=== PATIENT | male | born 1955 | race American Indian/Alaskan Native ===

== ENCOUNTER 2017-07-22 13:34 | Outpatient (CLI) | payer BC ==
--- NOTE | 2017-07-23 03:52 | Magnetic Resonance Report ---
FINAL REPORT EXAM: MR LUMBAR SPINE WO CON HISTORY: BACK PAIN TECHNIQUE: Routine multiplanar fast spin echo sequences were obtained of the lumbar spine including sagittal STIR images. There are no previous studies available for comparison. FINDINGS: At the L5-S1 level there is very mild narrowing of the disc with mild bulging of the disc annulus. The canal size is normal. The nerve roots exit normally. The facet joints appear well maintained. At the L4-5 level the disc height is preserved. The signal in the disc is normal. The canal size is normal. The nerve roots exit normally. At the L3-4 level there mild disc degeneration. The canal size is normal. The nerve roots exit normally. The facet joints are well maintained At the L2-3 level there is mild narrowing of the disc. The canal size is normal. The nerve roots exit normally. The facet joints are well maintained. The conus is normal in configuration and position at the L1-L2 level. There is very mild disc degeneration in the lower thoracic spine. There is no evidence of marrow edema. The surrounding soft tissues otherwise reveal 16 millimeter cyst in left kidney. IMPRESSION: Mild multilevel disc degeneration as described. No evidence of disc herniation, nerve root impingement or canal stenosis. No evidence of marrow edema. Small benign cortical cyst in left kidney.
== END 2017-07-22 13:35 | disposition home or self-care (01) ==
LOC: MRI 13:34
PROVIDERS: ATTEND Family Medicine Adult Medicine
DX: M51.34 Other intervertebral disc degeneration, thoracic region (principal); N28.1 Cyst of kidney, acquired
CPT/HCPCS: 72148